=== PATIENT | female | born 1970 | race Caucasian/White ===

== ENCOUNTER 2021-04-30 21:57 | Emergency (ER) | payer MEDICAID ==
[2021-04-30] MEDS ORDERED: Sodium Chloride 0.9% 1,000 ML IV ONE (22:07)
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
[2021-04-30] MEDS ORDERED: Ketorolac 60 MG/2 ML SDV IM ONE (23:35)
[2021-04-30] MEDS ORDERED: Insulin Regular, Human 100 Units/ML 3 ML Vial SUBCUT ONE (23:35)
== END 2021-05-01 00:04 | disposition home or self-care (01) ==
LOC: JP.ED 21:57
DX: E11.65 Type 2 diabetes mellitus with hyperglycemia (principal); G89.29 Other chronic pain; M54.5 Low back pain; Z79.4 Long term (current) use of insulin; Z79.82 Long term (current) use of aspirin; Z91.041 Radiographic dye allergy status; Z88.8 Allergy status to other drugs, medicaments and biological substances
CPT/HCPCS: 36415; 36600; 80053; 81001; 82150; 82803; 83690; 85025; 96372; 99283; 99284; J1885; J7030; J1815-GY